=== PATIENT | male | born 1990 | race African-American/Black ===

== ENCOUNTER 2019-05-07 11:38 | Emergency (ER) | payer OTHER ==
[2019-05-07 11:42] VITALS: BP 149/84; PULSE 86; TEMP 98.4; BMI 33.0
[2019-05-07] MEDS ORDERED: IBUPROFEN 600 MG TABLET (FP) PO ONE ×2 (12:08→12:29)
--- NOTE | 2019-05-07 12:10 | PDOC ---
History of Present Illness - General Chief Complaint: Pain, Acute Stated Complaint: LEFT FOOT PAIN Time Seen by Provider: 05/07/19 11:44 - History of Present Illness Initial Comments: Mr. Kenny is a 28 y/o male with no significant PMH, presenting today with left midfoot pain on the plantar aspect that started on Monday when he woke up. Reports that the pain was worsening on Monday but has been improving the past couple of days. Reports that the pain is only when standing or walking and not at rest. Denies trauma to the area, but reports that he uses the gym and trains in karate often. Denies fever, chills, headache, dizziness, chest pain, shortness of breath, abdominal pain, back pain, dysuria, hematochezia, nausea, vomiting. Past History - Past Medical History Allergies/Adverse Reactions: Allergies Allergy/AdvReac Type Severity Reaction Status Date / Time Penicillins Allergy Verified 05/07/19 11:39 Home Medications: Ambulatory Orders NK [No Known Home Medication] 05/07/19 COPD: No CHF: No - Suicide/Smoking/Psychosocial Hx Smoking History: Never smoked Hx Alcohol Use: No Drug/Substance Use Hx: No Review of Systems - Review of Systems Comments:: GENERAL/CONSTITUTIONAL: No fever or chills. No weakness._ HEAD, EYES, EARS, NOSE AND THROAT: No change in vision. No change in hearing. No sore throat._ CARDIOVASCULAR: No chest pain or shortness of breath_ RESPIRATORY: Denies cough, hemoptysis_ GASTROINTESTINAL: No nausea, vomiting, diarrhea or constipation._ GENITOURINARY: No dysuria, frequency, or change in urination._ MUSCULOSKELETAL: No joint or muscle swelling or pain. No neck or back pain. Reports left mid-foot pain. SKIN: No rash_ NEUROLOGIC: No headache, vertigo, loss of consciousness, or change in strength/ sensation. *Physical Exam - Vital Signs Last Vital Signs Temp Pulse Resp BP Pulse Ox 98.4 F 86 15 149/84 100 05/07/19 11:39 05/07/19 11:39 05/07/19 11:39 05/07/19 11:39 05/07/19 11:39 - Physical Exam Comments: GENERAL: Awake, alert, and oriented to person/place/time, in no acute distress_ HEAD: No signs of trauma, normocephalic, atraumatic _ EYES: PERRLA, EOMI, sclera anicteric, conjunctiva clear_ ENT: Hearing grossly normal, nares patent, oropharynx clear without exudates. No uvular deviation. Moist mucosa_ NECK: Normal ROM, supple, no lymphadenopathy, JVD, or masses_ LUNGS: No distress, speaks in full sentences, clear to auscultation bilaterally _ HEART: Regular rate and rhythm, normal S1 and S2, no murmurs appreciated, peripheral pulses normal and equal bilaterally._ ABDOMEN: Soft, nontender, normoactive bowel sounds. No guarding, no rebound. No masses_ EXTREMITIES: Normal inspection, Normal range of motion, no edema. No clubbing or cyanosis. No TTP to left foot. No erythema or warmth over left foot. NEUROLOGICAL: Cranial nerves II through XII grossly intact. Normal speech, normal gait, no focal sensorimotor deficits _ SKIN: Warm, Dry, normal turgor, no rashes or lesions noted_ Medical Decision Making - Medical Decision Making 28M with no PMH presenting with left foot pain that started on Monday when he woke up. Denies trauma. Reports frequent gym use and practices karate. No fever , no chills, no nausea/vomiting. No bony tenderness. DDx includes stress fx vs plantar fasciitis. -XR left foot 05/07/19 1315 XR of left foot shows no obvious fx. Plan to d/c home with Motrin for pain control and f/u powered bridge specialist if no improvement in 1 week. Return precautions given. Patient verbalized understanding and agreement. *DC/Admit/Observation/Transfer Diagnosis at time of Disposition: Foot pain, left - Discharge Dispostion Disposition: HOME Condition at time of disposition: Stable - Referrals Referrals: Carlie Lovelace DPM [Staff Physician] - - Patient Instructions Additional Instructions: Please wear sneakers with arch support. Please take Motrin 400 mg three times per day for pain relief. If the pain does not improve in 1 week, please make an appointment with powered bridge specialist (Dr. Lovelace). If you experience any new, worsening, or concerning symptoms, including severe foot pain, inability to stand on the foot, spreading redness on the foot, swelling on one leg, foot that is cold to the touch, high fever, or any other concerns, please return to the emergency room. - Post Discharge Activity Forms/Work/School Notes: Back to Work
--- NOTE | 2019-05-07 12:44 | PDOC ---
Attending Attestation - Resident Resident Name: Mak Shaw - ED Attending Attestation I have performed the following: I have examined & evaluated the patient, The case was reviewed & discussed with the resident, I agree w/resident's findings & plan, Exceptions are as noted - HPI HPI: 05/07/19 12:54 Reviewed Residents HPI - Physicial Exam PE: 05/07/19 12:55 - Medical Decision Making 05/07/19 13:05 Well-appearing no apparent distress history examination consistent with plantar fasciitis patient provided with strict instructions for arch support stretching podiatry follow-up Findings, the need for follow-up and strict return instructions discussed with patient.
== END 2019-05-07 13:05 | disposition home or self-care (01) ==
LOC: FER 11:38
DX: M79.672 Pain in left foot (principal)
CPT/HCPCS: 73630-TC-LT; 99282-25

== ENCOUNTER 2023-08-31 21:59 | Emergency (ER) | payer OTHER ==
[2023-08-31 22:06] VITALS: BP 151/86; PULSE 80; RESP 16; TEMP 98.4; BMI 33.7
== END 2023-08-31 22:55 | disposition home or self-care (01) ==
LOC: FER 21:59
DX: M54.6 Pain in thoracic spine (principal); S29.012A Strain of muscle and tendon of back wall of thorax, initial encounter; V49.40XA Driver injured in collision with unspecified motor vehicles in traffic accident, initial encounter; Y93.I9 Activity, other involving external motion
CPT/HCPCS: 99283-25